=== PATIENT | male | born 1965 | race Caucasian/White ===

== ENCOUNTER 2024-01-16 13:32 | Emergency (ER) | payer OTHER ==
[~2024-01-16] VITALS: Ht 172.7 cm; Wt 83.9 kg
[~2024-01-16 13:32] MED LIST: ACE INHIBITOR; ALPR.25 PO; ASPI325; ASPI325EC PO; ATOR10 PO; ATOR20 PO; FISH1000; FLUO10 PO; HYDACE5 PO; IBUP800 PO; LISI5 PO; META800 PO; ROSU10TA; SIMV10 PO; ZOLP6.25 PO
[2024-01-16 13:54] VITALS: BP 145/98
[2024-01-16] MEDS ORDERED: Ketorolac Tromethamine 15mg Vial IM ONE (15:05)
== END 2024-01-16 16:30 | disposition home or self-care (01) ==
LOC: ER 13:32
DX: S76.011A Strain of muscle, fascia and tendon of right hip, initial encounter (principal); E78.00 Pure hypercholesterolemia, unspecified; F17.200 Nicotine dependence, unspecified, uncomplicated; X50.0XXA Overexertion from strenuous movement or load, initial encounter; Z86.73 Personal history of transient ischemic attack (TIA), and cerebral infarction without residual deficits
CPT/HCPCS: 73502; J1885